=== PATIENT | female | born 1950 | race American Indian/Alaskan Native ===

== ENCOUNTER 2016-04-01 10:13 | Day surgery (SDC) | payer MEDICARE ==
[~2016-04-01 10:13] MED LIST: NACL 0.9% 1000 ML 1,000 ML IV SCH; PEPCID PO NR; VERSED IV NR
--- NOTE | 2016-04-01 10:54 | Anesthesia Consultation ---
Anesthesia Consult and Med Hx Date of service: 04/01/16 - Airway Anesthetic Teeth Evaluation: Partials ROM Head & Neck: Adequate Mental/Hyoid Distance: Adequate Mallampati Class: Class II Intubation Access Assessment: Probably Good - Pulmonary Exam CTA: Yes - Cardiac Exam Cardiac Exam: RRR - Pre-Operative Health Status ASA Pre-Surgery Classification: ASA3 - Pre-Anesthesia Comment Pre-Anesthesia Comments: Sinus drainage. Severe arthiritis, taking Advil - Pulmonary Hx Smoking: Yes (Quit ) SOB: Yes (W/EXERTION) - Cardiovascular System Hx Hypertension: Yes (Atenol taken last night ) - Gastrointestinal Hx Gastroesophageal Reflux Disease: Yes
[2016-04-01] MEDS ORDERED: DIPRIVAN 10 MG/ML IV ONE (10:56)
[2016-04-01] MEDS ORDERED: SUBLIMAZE ONE (10:56)
--- NOTE | 2016-04-01 10:56 | Anesthesia Day of Surgery ---
Anesthesia Day of Surgery - Day of Surgery Patient Examined: Yes Patient H&P Reviewed: Yes Patient is NPO: Yes
[2016-04-01] MEDS ORDERED: PROVENTIL IH NR (11:00)
[2016-04-01] MEDS ORDERED: MORPHINE IV PRN (11:23)
[2016-04-01] MEDS ORDERED: PERCOCET 5/325 PO PRN (11:23)
[2016-04-01] MEDS ORDERED: ZOFRAN IV PRN ×2 (11:28→14:53)
[2016-04-01] MEDS ORDERED: DILAUDID IV ONE (12:00)
[2016-04-01] MEDS ORDERED: ANCEF/STERILE WATER 2 GM/20 ML IV NR (13:00)
[2016-04-01] MEDS ORDERED: ZOFRAN ONE (13:02)
[2016-04-01] MEDS ORDERED: TORADOL ONE (13:02)
[2016-04-01] MEDS ORDERED: DECADRON ONE (13:02)
[2016-04-01] MEDS ORDERED: XYLOCAINE MPF 2% ONE (13:02)
[2016-04-01] MEDS ORDERED: NACL 0.9% 1000 ML 1,000 ML ONE (13:35)
--- NOTE | 2016-04-01 13:41 | Post Operative Note ---
Pre-op diagnosis: painful bladder Post-op diagnosis: same Findings: IC Procedure: cysto hydrodistension rpgs Anesthesia: GETA Surgeon: RENETTA STAPLES Estimated blood loss: minimal Pathology: none Condition: stable Disposition: PACU
--- NOTE | 2016-04-01 13:42 | Discharge Summary ---
Short Stay Discharge Plan Activity: other (no straining ) Weight Bearing Status: Full Weight Bearing Diet: low fat, low cholesterol, low salt Special Instructions: other (inc fluids ) Durable Medical Equipment Needed Upon Discharge: other (d/c sekou in rr ) Follow up with: MILADYS BLUNT MD [Primary Care Provider] - 7 Days RENETTA STAPLES MD [Staff Physician] - 7 Days
[2016-04-01] MEDS ORDERED: WATER FOR IRRIG STERILE IR ONE ×2 (13:47)
[2016-04-01] MEDS ORDERED: OMNIPAQUE 300 MG/50 ML (CATH LAB) IV ONE (13:47)
--- NOTE | 2016-04-01 14:04 | Operative Report ---
PREOPERATIVE DIAGNOSIS: Interstitial cystitis. POSTOPERATIVE DIAGNOSIS: Interstitial cystitis. PROCEDURE: Cystoscopy, hydrodistention, retrograde. SURGEON: Yohan Beckwith MD ANESTHESIA: General. FINDINGS: This is a woman with interstitial cystitis in the past. She now presents with pelvic pain and for cystoscopy. DESCRIPTION OF PROCEDURE: The patient was brought to the operating room and placed on the operating table. Following induction of anesthesia, placed in lithotomy position, prepped and draped in usual sterile fashion. Cystourethroscopy showed 1-2+ cystocele. Bladder was entered. The orifices were a little bit laterally deviated. There was what appeared to be a wide open diverticulum posterior lateral wall of the bladder, but it really was not a diverticulum, it was just a weakened area of the bladder. Retrograde showed good filling, good drainage and you could see the contrast filling in the posterior dependent portion of the bladder, which drained freely. There were no epithelial lesions. Bladder was well visualized with 30-and 70-degree lens. First filling was 500 seconds, was about 600, small capacity under anesthesia and there were clear glomerulations in the beginning of ulcers, mostly posteriorly and towards the dome. This was about 20-30% of the bladder. The rest of the bladder was normal. The patient tolerated the procedure well, good drainage, brought to recovery room with the Ugalde, will be removed before discharge. Family notified. JOB# [id number] JEANNIE/RANDA
--- NOTE | 2016-04-01 14:45 | Post Anesthesia Evaluation ---
- Post Anesthesia Evaluation Patient Participated: Yes Airway Patent: Yes Stable Respiratory Function: Yes Nausea/Vomiting: No Temp > 96.8F: Yes Pain Manageable: Yes Adequeate Hydration: Yes Anesthesia Complications: No Block Receding Appropriately: Not Applicable Patient on Ventilator: No
--- NOTE | 2016-04-01 15:04 | Fluoroscopy Report ---
FLUOROSCOPY RETROGRADE UROGRAPHY INDICATION: Urinary tract infection.. COMPARISON: None similar at this institution. FINDINGS: Bilateral retrograde urograms performed. Welfare Worker view demonstrates lumbar spondylosis. Subsequent retrograde opacification of both ureters suggest no persistent suspicious filling defects or hydronephrosis. CONCLUSION: Findings, as above. Thank you for the opportunity to participate in this patient's care.
[2016-04-01 18:40] VITALS: BP 123/88
== END 2016-04-01 16:20 | disposition home or self-care (01) ==
LOC: EDSEX 10:13 → OR 10:13
PROVIDERS: ATTEND Urology
DX: N30.10 Interstitial cystitis (chronic) without hematuria (principal); I10 Essential (primary) hypertension; K21.9 Gastro-esophageal reflux disease without esophagitis; Z87.891 Personal history of nicotine dependence; Z79.899 Other long term (current) drug therapy
CPT/HCPCS: 52260; 74420; A4217; J0690; J1100; J1170; J1885; J2250; J2270; J2405; J2704; J3010; J7030; Q9967; C1758; C1769